=== PATIENT | female | born 1980 | race Caucasian/White ===

== ENCOUNTER 2016-07-18 09:54 | Emergency (ER) | payer OTHER ==
[2016-07-18 10:02] VITALS: BMI 26.3
[2016-07-18 10:03] VITALS: O2SAT 100
[2016-07-18] MEDS ORDERED: Sodium Chloride 0.9% 1,000 ML IV ONE (10:20)
--- NOTE | 2016-07-18 10:32 | C.PDOC ---
History Of Present Illness 35 year old patient, with a past medical history of gastritis, presents to the emergency department complaining of dizziness that began 1 week ago. Patient states the dizziness is intermittent and worse with standing in the morning. Patient also complains of a posterior headache that began yesterday. The headache is dull and aching. Patient took Tylenol with mild relief. This morning when she woke up, she was walking to the bathroom and felt dizzy with a room spinning sensation. Patient notes these symptoms are new. She reports nasal congestion and difficulty breathing through her nose at night. Patient denies fever, vision change, chest pain, shortness of breath, neck pain, numbness, weakness, or back pain. Time Seen by Provider: 07/18/16 10:06 Chief Complaint (Nursing): Dizziness/Lightheaded History Per: Patient History/Exam Limitations: no limitations Onset/Duration Of Symptoms: Days (7) Current Symptoms Are (Timing): Still Present Activity At Onset Of Symptoms: Walking Fall Associated With With Symptoms: No Severity: Mild Pain Scale Rating Of: 3 Recent travel outside of the [place]: No Past Medical History Reviewed: Historical Data, Nursing Documentation, Vital Signs Vital Signs: Last Vital Signs Temp 98.8 F 07/18/16 10:01 Pulse 72 07/18/16 10:01 Resp 17 07/18/16 10:01 BP 104/70 07/18/16 10:01 Pulse Ox 100 07/18/16 11:36 - Medical History PMH: Gastritis, Gastrointestinal Ulcer, Hiatal Hernia Surgical History: Cholecystectomy (05/31/14) Family History: States: Unknown Family Hx - Social History Hx Tobacco Use: No Hx Alcohol Use: No Hx Substance Use: No - Immunization History Hx Tetanus Toxoid Vaccination: No Hx Influenza Vaccination: No Hx Pneumococcal Vaccination: No Review Of Systems Except As Marked, All Systems Reviewed And Found Negative. Constitutional: Negative for: Fever Eyes: Negative for: Vision Change Cardiovascular: Negative for: Chest Pain Respiratory: Negative for: Shortness of Breath Musculoskeletal: Negative for: Neck Pain, Back Pain Neurological: Positive for: Headache, Dizziness. Negative for: Weakness, Numbness Physical Exam - Physical Exam Appears: Non-toxic, No Acute Distress Skin: Warm, Diaphoretic Head: Atraumatic, Normacephalic Eye(s): bilateral: Normal Inspection, PERRL, EOMI, Other ((-)nystagmus) Ear(s): Bilateral: Normal Nose: Normal Oral Mucosa: Moist Throat: Normal, No Erythema Neck: Normal ROM, No Midline Cervical Tenderness, No Paracervical Tenderness, Supple Chest: Symmetrical, No Tenderness Cardiovascular: Rhythm Regular Respiratory: Normal Breath Sounds, No Rales, No Rhonchi, No Wheezing Gastrointestinal/Abdominal: Soft, No Tenderness Back: Normal Inspection, No CVA Tenderness Extremity: Normal ROM Neurological/Psych: Oriented x3, Normal Speech, Normal Cognition, Normal Motor, Normal Sensation Gait: Steady ED Course And Treatment - Laboratory Results Result Diagrams: 07/18/16 10:38 07/18/16 10:38 Lab Interpretation: No Acute Changes ECG: Interpreted By Me, Viewed By Me (and Dr Lazaro) ECG Rhythm: Sinus Rhythm ECG Interpretation: No Acute Changes Interpretation Of ECG: NS at 80 bpm with nonspecific T wave abnormality, normal axis O2 Sat by Pulse Oximetry: 100 (RA) Pulse Ox Interpretation: Normal - CT Scan/US Head CT Other Rad Studies (CT/US): Read By Radiologist, Radiology Report Reviewed CT/US Interpretation: FINDINGS: HEMORRHAGE: No intracranial hemorrhage. BRAIN : No mass effect or edema. No atrophy or chronic microvascular ischemic changes. Pituitary region is unremarkable. No obvious cerebellopontine angle masses are noted. No extra-axial collections are identified. Retro-orbital regions are unremarkable. VENTRICLES: Unremarkable. No hydrocephalus. CALVARIUM: Unremarkable. PARANASAL SINUSES: Unremarkable as visualized. No significant inflammatory changes. MASTOID AIR CELLS: Unremarkable as visualized. No inflammatory changes. OTHER FINDINGS: None. IMPRESSION: No evidence of recent infarct or mass lesion. Unremarkable CT scan of the brain without contrast. Medical Decision Making Medical Decision Making: Impression: 35 year old with dizziness and headache Plan: Head CT, EKG, and labs are ordered. Orthostatic vital signs. Reglan and IV fluids are given. Re-assessment: Labs reviewed and unremarkable, no leukocytosis dehydration or other abnormality Head CT shows No evidence of recent infarct or mass lesion. Unremarkable CT scan of the brain without contrast. EKG obtained and shows no ischemic disease. Upon reevaluation patient resting comfortably in bed and reports headache and dizziness have resolved. Vital signs are stable. Patient has normal neurological exam. I explained all labs and CT findings with patient, and provide copy of reports. Advise patient to take Antivert and to follow up with her primary physician in few days for further evaluation. Patient verbalized understanding and feels comfortable going home. Disposition Counseled Patient/Family Regarding: Studies Performed, Diagnosis, Need For Followup, Rx Given - Disposition Referrals: Sol Hart MD [Non-Staff] - Hugh Evangelista MD [Staff Provider] - Disposition: HOME/ ROUTINE Disposition Time: 11:52 Condition: STABLE Additional Instructions: Cari laboratorios y TC rebeca normales Descanse y tome Antivert hasta 3 veces al da para mareos Realice un seguimiento con house mdico de cabecera y neurlogo para consultar Angela lquidos y descanse Volver a la renetta de emergencias para cualquier empeoramiento de los sntomas Prescriptions: Meclizine [Antivert] 25 mg PO Q6 #30 tab Instructions: Vertigo (ED) Print Language: TURKISH - POA Present On Arrival: None - Clinical Impression Clinical Impression: Vertigo - PA / 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 - Scribe Statement The provider has reviewed the documentation as recorded by the Scribe Pattie Maxwell All medical record entries made by the Scribe were at my direction and personally dictated by me. I have reviewed the chart and agree that the record accurately reflects my personal performance of the history, physical exam, medical decision making, and the department course for this patient. I have also personally directed, reviewed, and agree with the discharge instructions and disposition.
[2016-07-18] MEDS ORDERED: Sodium Chloride 0.9% 1,000 ML ONE (10:36)
[2016-07-18 10:46] LABS: RBC URINE < 1 /hpf (0-3); URINE BACTERIA RARE (<OCC); URINE BILIRUBIN NEGATIVE (NEGATIVE); URINE BLOOD 1+ (NEGATIVE); URINE COLOR Yellow (YELLOW); URINE GLUCOSE (UA) NORMAL (Normal); URINE KETONE NEGATIVE (NEGATIVE); URINE LEUKOCYTE ESTERASE NEG Leu/uL (Negative); URINE PROTEIN NEGATIVE (NEGATIVE); URINE UROBILINOGEN NORMAL mg/dL (0.2-1.0); WBC URINE 1 /hpf (0-5)
[2016-07-18 10:48] LABS: BASO % 0.8 % (0.0-2.0); EOS # 0.1 K/uL (0.0-0.7); EOS % 2.4 % (0.0-4.0); HEMATOCRIT 37.1 % (34.0-47.0); LYMPH # 1.6 K/uL (1.0-4.3); LYMPH % 28.4 % (20.0-40.0); MEAN CELL VOLUME 86.3 fL (81.0-99.0); MEAN CORPUSCULAR HGB CONC 33.7 g/dL (33.0-37.0); MEAN PLATELET VOLUME 9.2 fL (7.2-11.7); MONO # 0.3 K/uL (0.0-0.8); MONO % 5.8 % (0.0-10.0); RED CELL DISTRIBUTION WIDTH 14.1 % (11.5-14.5); WHITE BLOOD COUNT 5.6 K/uL (4.8-10.8)
[2016-07-18 10:51] LABS: CHLORIDE 99 mmol/L (98-107)
[2016-07-18 10:52] LABS: POTASSIUM 4.1 mmol/L (3.6-5.2); SODIUM 137 mmol/L (132-148)
[2016-07-18 10:55] LABS: ALB/GLOB RATIO 1.3 (1.0-2.1); ALKALINE PHOSPHATASE 50 U/L (38-126); ALT/SGPT 21 U/L (9-52); AST/SGOT 21 U/L (14-36); BILIRUBIN,TOTAL 0.4 mg/dL (0.2-1.3); BLOOD UREA NITROGEN 14 mg/dL (7-17); CARBON DIOXIDE 27 mmol/L (22-30); GFR AFRICAN-AMERICAN > 60; GLUCOSE,RANDOM 92 mg/dL (65-105); TOTAL PROTEIN 7.2 g/dL (6.3-8.3)
--- NOTE | 2016-07-18 11:31 | CT ---
PROCEDURE: CT HEAD WITHOUT CONTRAST. HISTORY: Headache and dizziness for 7 days COMPARISON: None available. TECHNIQUE: Axial computed tomography images were obtained through the head/brain without intravenous contrast. Radiation dose: Total exam DLP = 873 mGy-cm. FINDINGS: HEMORRHAGE: No intracranial hemorrhage. BRAIN: No mass effect or edema. No atrophy or chronic microvascular ischemic changes. Pituitary region is unremarkable. No obvious cerebellopontine angle masses are noted. No extra-axial collections are identified. Retro-orbital regions are unremarkable. VENTRICLES: Unremarkable. No hydrocephalus. CALVARIUM: Unremarkable. PARANASAL SINUSES: Unremarkable as visualized. No significant inflammatory changes. MASTOID AIR CELLS: Unremarkable as visualized. No inflammatory changes. OTHER FINDINGS: None. IMPRESSION: No evidence of recent infarct or mass lesion. Unremarkable CT scan of the brain without contrast.
[2016-07-18 12:33] VITALS: BP 105/65; PULSE 65; RESP 18; TEMP 98.5
--- NOTE | 2016-07-21 08:05 | CARD ---
APPROVED REPORT EKG Measurement Heart [id number] <Conclusion> Normal sinus rhythm Nonspecific T wave abnormality Prolonged QT Abnormal ECG
== END 2016-07-18 13:00 | disposition home or self-care (01) ==
LOC: C.ER 09:54
DX: R42 Dizziness and giddiness (principal)

== ENCOUNTER 2016-10-14 12:12 | Emergency (ER) | payer OTHER ==
[2016-10-14 12:12] VITALS: BMI 26.3
--- NOTE | 2016-10-14 13:55 | C.PDOC ---
History Of Present Illness 35-year-old female, (), presents to the emergency department with complaints of intermittent vaginal bleeding, described as "spotting" x2 weeks. Patient notes she was seen by [facility], where there was a test done and it was positive. Patient was seen by OB clinic, but they "did nothing" resulting in her coming to the ED for evaluation. Denies nausea/vomiting, vaginal discharge, or any other associated symptoms. No other complaints at this time. Time Seen by Provider: 10/14/16 13:02 Chief Complaint (Nursing): Female Genitourinary History Per: Patient History/Exam Limitations: no limitations Onset/Duration Of Symptoms: Days Past Medical History Reviewed: Historical Data, Nursing Documentation, Vital Signs Vital Signs: Last Vital Signs Temp 98.0 F 10/14/16 15:33 Pulse 71 10/14/16 15:33 Resp 20 10/14/16 15:33 BP 97/63 L 10/14/16 15:33 Pulse Ox 99 10/14/16 15:33 - Medical History PMH: Gastritis, Gastrointestinal Ulcer, Hiatal Hernia Surgical History: Cholecystectomy (05/31/14) Family History: States: No Known Family Hx - Social History Hx Tobacco Use: No Hx Alcohol Use: No Hx Substance Use: No - Immunization History Hx Tetanus Toxoid Vaccination: No Hx Influenza Vaccination: No Hx Pneumococcal Vaccination: No Review Of Systems Except As Marked, All Systems Reviewed And Found Negative. Constitutional: Negative for: Fever Cardiovascular: Negative for: Chest Pain Respiratory: Negative for: Shortness of Breath Gastrointestinal: Negative for: Nausea, Vomiting, Abdominal Pain Genitourinary: Positive for: Vaginal Bleeding. Negative for: Dysuria, Frequency , Vaginal Discharge Physical Exam - Physical Exam Appears: Well, Non-toxic, No Acute Distress Skin: Normal Color, Warm, Dry, No Rash Nose: Normal Oral Mucosa: Moist Lips: Normal Appearing Neck: Normal ROM Cardiovascular: Rhythm Regular, No Murmur Respiratory: Normal Breath Sounds, No Accessory Muscle Use Gastrointestinal/Abdominal: Soft, No Tenderness Back: Normal Inspection Extremity: Normal ROM ED Course And Treatment - Laboratory Results Result Diagrams: 10/14/16 14:10 10/14/16 14:10 O2 Sat by Pulse Oximetry: 100 - CT Scan/US us Other Rad Studies (CT/US): Radiology Report Reviewed CT/US Interpretation: Findings: The uterus measures approximately 9.7 x 5.5 x 6.9 cm. Cervix length measures approximately 3.4 cm. 6 mm yolk sac. The gestational sac measures 1.2 cm and is compatible with a gestational age of 5 weeks 2 days. pole is not detected. The right ovary measures 3.8 x 2.0 x 2.9 cm with probable corpus luteal cyst measuring approximately 2.6 x 2.0 x 2.0 cm. The left ovary measures 2.3 x 1.7 x 2.5 cm. Blood flow was demonstrated to both ovaries. Impression: Intrauterine gestational sac compatible with gestational age 5 weeks 2 days. 6 mm yolk sac. pole is not detected. Medical Decision Making Medical Decision Making: Results including US discussed with pt Contrary to radiologist report OB consult is NOT indicated at this time Pt stable for discharge and op follow up Disposition Counseled Patient/Family Regarding: Need For Followup - Disposition Disposition: HOME/ ROUTINE Disposition Time: 15:50 Condition: GOOD Additional Instructions: Follow up with you ob clinic in 2-3 days to have repeat blood test Return to the ed for any new or worsening symptoms Instructions: Threatened Miscarriage (ED) Print Language: SAMOAN - Clinical Impression Clinical Impression: First trimester bleeding - Scribe Statement The provider has reviewed the documentation as recorded by the Bandar Melendez All medical record entries made by the Bandar were at my direction and personally dictated by me. I have reviewed the chart and agree that the record accurately reflects my personal performance of the history, physical exam, medical decision making, and the department course for this patient. I have also personally directed, reviewed, and agree with the discharge instructions and disposition.
[2016-10-14 14:13] LABS: BASO # 0.1 K/uL (0.0-0.2); BASO % 0.7 % (0.0-2.0); EOS # 0.2 K/uL (0.0-0.7); HEMATOCRIT 37.8 % (34.0-47.0); LYMPH # 1.8 K/uL (1.0-4.3); LYMPH % 22.6 % (20.0-40.0); MEAN CORPUSCULAR HEMOGLOBIN 28.9 pg (27.0-31.0); MEAN CORPUSCULAR HGB CONC 33.2 g/dL (33.0-37.0); MEAN PLATELET VOLUME 8.9 fL (7.2-11.7); MONO # 0.4 K/uL (0.0-0.8); MONO % 5.3 % (0.0-10.0); NRBC % 0.1 % (0.0-2.0); RED CELL DISTRIBUTION WIDTH 14.4 % (11.5-14.5); WHITE BLOOD COUNT 7.8 K/uL (4.8-10.8)
[2016-10-14 14:22] LABS: CHLORIDE 103 mmol/L (98-107); SODIUM 137 mmol/L (132-148)
[2016-10-14 14:23] LABS: POTASSIUM 3.6 mmol/L (3.6-5.2)
[2016-10-14 14:24] LABS: GFR AFRICAN-AMERICAN > 60
[2016-10-14 14:25] LABS: ALB/GLOB RATIO 1.4 (1.0-2.1); ALKALINE PHOSPHATASE 61 U/L (38-126); ALT/SGPT 25 U/L (9-52); AST/SGOT 23 U/L (14-36); BILIRUBIN,TOTAL 0.3 mg/dL (0.2-1.3); BLOOD UREA NITROGEN 12 mg/dL (7-17); CARBON DIOXIDE 24 mmol/L (22-30); GLUCOSE,RANDOM 81 mg/dL (65-105); TOTAL PROTEIN 7.2 g/dL (6.3-8.3)
[2016-10-14 14:26] LABS: CALCIUM 8.7 mg/dl (8.6-10.4)
[2016-10-14 14:39] LABS: URINE BILIRUBIN NEGATIVE (NEGATIVE); URINE BLOOD 1+ (NEGATIVE); URINE COLOR Straw (YELLOW); URINE GLUCOSE (UA) NORMAL (Normal); URINE KETONE NEGATIVE (NEGATIVE); URINE LEUKOCYTE ESTERASE NEG Leu/uL (Negative); URINE PROTEIN NEGATIVE (NEGATIVE); URINE UROBILINOGEN NORMAL mg/dL (0.2-1.0); WBC URINE 1 /hpf (0-5)
[2016-10-14 14:43] LABS: RBC URINE 2 /hpf (0-3); URINE BACTERIA RARE (<OCC)
--- NOTE | 2016-10-14 15:05 | US ---
Indication: 2 miscarriages, , bleeding Comparison: None available. Technique: Real-time transabdominal pelvic ultrasound was performed. In addition a transvaginal pelvic ultrasound was necessary to better depict pelvic anatomy. Findings: The uterus measures approximately 9.7 x 5.5 x 6.9 cm. Cervix length measures approximately 3.4 cm. 6 mm yolk sac. The gestational sac measures 1.2 cm and is compatible with a gestational age of 5 weeks 2 days. pole is not detected. The right ovary measures 3.8 x 2.0 x 2.9 cm with probable corpus luteal cyst measuring approximately 2.6 x 2.0 x 2.0 cm. The left ovary measures 2.3 x 1.7 x 2.5 cm. Blood flow was demonstrated to both ovaries. Impression: Intrauterine gestational sac compatible with gestational age 5 weeks 2 days. 6 mm yolk sac. pole is not detected. Correlate clinically including SONOGRAPHER consultation and close interval follow-up as indicated. Probable right corpus luteal cyst measuring approximately 2.6 x 2.0 x 2.0 cm.
[2016-10-14 15:34] VITALS: BP 97/63; PULSE 71; RESP 20; TEMP 98
[2016-10-14 15:53] VITALS: O2SAT 100
== END 2016-10-14 16:09 | disposition home or self-care (01) ==
LOC: C.ER 12:12
DX: O20.9 Hemorrhage in early pregnancy, unspecified (principal); Z3A.01 Less than 8 weeks gestation of pregnancy

== ENCOUNTER 2016-10-15 13:11 | Emergency (ER) | payer OTHER ==
[2016-10-15 13:11] VITALS: BMI 26.3
[2016-10-15 13:23] VITALS: O2SAT 97
--- NOTE | 2016-10-15 13:56 | C.PDOC ---
History Of Present Illness 35 y/o female presents to ED with complaints of vaginal bleeding. Patient was seen at ED yesterday for vaginal spotting and had blood work and an ultrasound where patient states could have been the reason bleeding has increased today by passing small blood clots. Patient also complaints of cramping and lower abdominal pain. Patient denies fever, vomit, urinary symptoms or any other complaints at this time. Reports (+) care, (+) prior US - done here yesterday. OB : [place] [facility] [phone] Time Seen by Provider: 10/15/16 13:34 Chief Complaint (Nursing): Female Genitourinary History Per: Patient History/Exam Limitations: no limitations Onset/Duration Of Symptoms: Days Current Symptoms Are (Timing): Still Present Associated Symptoms: denies: Vomiting, Urinary Symptoms Past Medical History Reviewed: Historical Data, Nursing Documentation, Vital Signs Vital Signs: Last Vital Signs Temp 98.9 F 10/15/16 13:22 Pulse 84 10/15/16 13:22 Resp 16 10/15/16 13:22 BP 112/79 10/15/16 13:22 Pulse Ox 97 10/15/16 16:39 - Medical History PMH: Gastritis, Gastrointestinal Ulcer, Hiatal Hernia Surgical History: Cholecystectomy (05/31/14) Family History: States: No Known Family Hx - Social History Hx Tobacco Use: No Hx Alcohol Use: No Hx Substance Use: No - Immunization History Hx Tetanus Toxoid Vaccination: No Hx Influenza Vaccination: No Hx Pneumococcal Vaccination: No Review Of Systems Except As Marked, All Systems Reviewed And Found Negative. Constitutional: Negative for: Fever, Chills Gastrointestinal: Positive for: Abdominal Pain. Negative for: Vomiting Genitourinary: Positive for: Vaginal Bleeding Skin: Negative for: Rash Physical Exam - Physical Exam Appears: Non-toxic, No Acute Distress Skin: Normal Color, Warm Head: Atraumatic, Normacephalic Oral Mucosa: Moist Cardiovascular: Rhythm Regular, No Murmur Respiratory: Normal Breath Sounds, No Rales, No Rhonchi, No Wheezing Gastrointestinal/Abdominal: Soft, Tenderness (Mild Suprapubic Tenderness), No Organomegaly, No Distention, No Guarding, No Rebound Back: Normal Inspection, No CVA Tenderness, No Vertebral Tenderness Pelvic: Vaginal Bleeding (mild bleeding noted from a closed OS, diazo technician was present during the entire exam) Extremity: Normal ROM, Capillary Refill (<2 seconds) Neurological/Psych: Oriented x3, Normal Speech Gait: Steady ED Course And Treatment - Laboratory Results Result Diagrams: 10/15/16 14:12 Interpretation Of Abnormal: beta quant 1,134 Urine POC: Positive O2 Sat by Pulse Oximetry: 97 (RA) Pulse Ox Interpretation: Normal - CT Scan/US US TV Other Rad Studies (CT/US): Read By Radiologist CT/US Interpretation: Findings: The uterus measures approximately 10.5 x 5.9 x 6.5 cm. Anteverted. Cervix length measures approximately 2.7 cm. Gestational sac measuring approximately 1.2 cm compatible with gestational age 5 weeks 3 days. The gestational sac is irregular in appearance and resides within the lower uterine segment. 2 mm yolk sac also appears irregular. No evidence of pole. The right ovary measures approximately 3.8 x 2.1 x 2.5 cm and contains probable corpus luteal cyst measuring approximately 2.3 x 1.8 x 1.9 cm. The left ovary measures approximately 2.8 x 1.1 x 2.7 cm. Blood flow was demonstrated to both ovaries. Impression: Irregular shape of an intrauterine gestational sac which measures approximately 1.2 cm compatible with gestational age 5 weeks 3 days. The gestational sac resides within the lower uterine segment , new as compared to recent prior study. 2 mm yolk sac also appears irregular in shape. pole is not identified. Correlate clinically. 2.3 cm probable right corpus luteal cyst. Medical Decision Making Medical Decision Makin yo F returns to the ER for increased in vaginal bleeding and lower abdominal crampy pain which started this AM. Reports that she was seen here yesterday for vaginal spotting, had labs and US. Her beta quant from yesterday was 1,900, her US showed +yolk sac with no pole. Of note, patient's type and screen yesterday, showed pt is O+. Plan: - CBC - Beta quant - TV US Labs results reviewed, beta quant has decreased from yesterday and her TV US shows (+) sac with no pole. Results of the diagnostic studies today is consistent with a likely miscarriage. Diagnostic results d/w the patient and her in great detail. Notified of likely diagnosis. Patient and her at this time would like to watch and wait and does not feel comfortable with any further treatment plans. Call placed to her OB. Case d/w Dr. Zhao, from [facility], who states that as long as the patient is not having heavy vaginal bleeding, can f/u as an outpatient in the next 2-3 days without fail. Arrangements made for outpatient f/u for the patient with the clinic on Tuesday 9AM 10/18/16 for further evaluation and follow up. Return to the ER at any time for any new or worsening symptoms. Disposition - Disposition Disposition: HOME/ ROUTINE Disposition Time: 16:00 Condition: STABLE Additional Instructions: Follow up with the clinic on Tuesday10/18/16 at 9am without fail for re- evaluation. Return to the ER at any time for any new or worsening symptoms. 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 - Scribe Statement The provider has reviewed the documentation as recorded by the Kaityibdonna Valdivia All medical record entries made by the Bandar were at my direction and personally dictated by me. I have reviewed the chart and agree that the record accurately reflects my personal performance of the history, physical exam, medical decision making, and the department course for this patient. I have also personally directed, reviewed, and agree with the discharge instructions and disposition.
[2016-10-15 14:20] LABS: BASO # 0.1 K/uL (0.0-0.2); EOS # 0.1 K/uL (0.0-0.7); EOS % 1.5 % (0.0-4.0); HEMATOCRIT 36.7 % (34.0-47.0); LYMPH # 1.9 K/uL (1.0-4.3); LYMPH % 22.6 % (20.0-40.0); MEAN CELL VOLUME 86.9 fL (81.0-99.0); MEAN CORPUSCULAR HEMOGLOBIN 28.6 pg (27.0-31.0); MEAN CORPUSCULAR HGB CONC 32.9 g/dL (33.0-37.0); MEAN PLATELET VOLUME 8.9 fL (7.2-11.7); MONO # 0.4 K/uL (0.0-0.8); MONO % 4.7 % (0.0-10.0); RED CELL DISTRIBUTION WIDTH 14.3 % (11.5-14.5); WHITE BLOOD COUNT 8.6 K/uL (4.8-10.8)
--- NOTE | 2016-10-15 14:56 | US ---
Indication: Vaginal bleeding Comparison: 1st trimester ultrasound performed 10/14/16 Technique: Ob transvaginal ultrasound Findings: The uterus measures approximately 10.5 x 5.9 x 6.5 cm. Anteverted. Cervix length measures approximately 2.7 cm. Gestational sac measuring approximately 1.2 cm compatible with gestational age 5 weeks 3 days. The gestational sac is irregular in appearance and resides within the lower uterine segment. 2 mm yolk sac also appears irregular. No evidence of pole. The right ovary measures approximately 3.8 x 2.1 x 2.5 cm and contains probable corpus luteal cyst measuring approximately 2.3 x 1.8 x 1.9 cm. The left ovary measures approximately 2.8 x 1.1 x 2.7 cm. Blood flow was demonstrated to both ovaries. Impression: Irregular shape of an intrauterine gestational sac which measures approximately 1.2 cm compatible with gestational age 5 weeks 3 days. The gestational sac resides within the lower uterine segment, new as compared to recent prior study. 2 mm yolk sac also appears irregular in shape. pole is not identified. Correlate clinically. 2.3 cm probable right corpus luteal cyst.
[2016-10-15 16:44] VITALS: BP 98/64; PULSE 90; RESP 18; TEMP 98.8
== END 2016-10-15 16:45 | disposition home or self-care (01) ==
LOC: C.ER 13:11
DX: O03.4 Incomplete spontaneous abortion without complication (principal)

== ENCOUNTER 2017-03-30 15:52 | Emergency (ER) | payer OTHER ==
[2017-03-30 15:52] VITALS: BMI 26.3
[2017-03-30 16:30] VITALS: TEMP 97.8
--- NOTE | 2017-03-30 17:10 | C.PDOC ---
History Of Present Illness 36 y/o female c/o flu like symptoms approx 10 days ago, now with persistent dry cough for the last week. pt also c/o sternal chest pain that comes and goes with no associated diaphoresis or sob, and with coughing as well. no recent fever, no rhinorrhea. denies leg pain or leg swelling, not on ocp, no recent surgery or prolonged immobilization. Time Seen by Provider: 03/30/17 16:30 Chief Complaint (Nursing): Fever History Per: Patient History/Exam Limitations: no limitations Onset/Duration Of Symptoms: Days Current Symptoms Are (Timing): Still Present Sick Contacts (Context): None Associated Symptoms: Cough Ear Symptoms: Bilateral: None Recent travel outside of the [place]: No Additional History Per: Patient Past Medical History Reviewed: Historical Data, Nursing Documentation, Vital Signs Vital Signs: Last Vital Signs Temp 97.8 F 03/30/17 16:30 Pulse 78 03/30/17 18:57 Resp 16 03/30/17 18:57 BP 119/85 03/30/17 18:57 Pulse Ox 99 04/02/17 10:52 - Medical History PMH: Gastritis, Gastrointestinal Ulcer, Hiatal Hernia Surgical History: Cholecystectomy (05/31/14) Family History: States: Unknown Family Hx - Social History Hx Tobacco Use: No Hx Alcohol Use: No Hx Substance Use: No - Immunization History Hx Tetanus Toxoid Vaccination: No Hx Influenza Vaccination: No Hx Pneumococcal Vaccination: No Review Of Systems Constitutional: Negative for: Fever, Chills Cardiovascular: Positive for: Chest Pain. Negative for: Palpitations Respiratory: Positive for: Cough. Negative for: Shortness of Breath Gastrointestinal: Negative for: Nausea, Vomiting, Abdominal Pain Musculoskeletal: Negative for: Leg Pain Skin: Negative for: Rash Neurological: Negative for: Weakness, Numbness Physical Exam - Physical Exam Appears: Non-toxic, No Acute Distress Skin: Normal Color, Warm, Dry Head: Atraumatic, Normacephalic Eye(s): bilateral: Normal Inspection Oral Mucosa: Moist Throat: No Erythema Neck: Supple Lymphatic: No Adenopathy Chest: Symmetrical, No Deformity, Tenderness (reproducible tenderness along bilateral costochondral borders) Cardiovascular: Rhythm Regular, No Murmur Respiratory: No Decreased Breath Sounds, No Rales, No Rhonchi, No Wheezing Gastrointestinal/Abdominal: Soft, No Tenderness Back: No Vertebral Tenderness Extremity: Normal ROM, No Pedal Edema, No Calf Tenderness, No Swelling Neurological/Psych: Oriented x3, Normal Speech, Normal Cognition, Normal Motor, Normal Sensation ED Course And Treatment - Laboratory Results Urine POC: Negative Interpretation Of ECG: non specific t wave abnormality Rate From EC O2 Sat by Pulse Oximetry: 99 Pulse Ox Interpretation: Normal - Radiology CXR: Viewed By Me, Read By Radiologist CXR Interpretation: Yes: Other (Findings are most compatible with reactive small airway disease/ viral bronchitis/ atypical pneumonitis. No lobar pneumonia.) Medical Decision Making Medical Decision Making: pt feeling better after toradol, cxr neg for infiltrate, ekg with non specigfic changes. pt advised to f/u with pmd. Disposition Counseled Patient/Family Regarding: Studies Performed, Diagnosis, Need For Followup, Rx Given - Disposition Referrals: [facility] [Outside] Disposition: HOME/ ROUTINE Disposition Time: 18:39 Condition: STABLE Additional Instructions: Follow up with your doctor in a few days. Take ibuprofen for pain. Return to ER for any worse symptoms, worse pain, shortness of breath or any other concerns. Prescriptions: Ibuprofen [Motrin] 600 mg PO TID #30 tab Instructions: Costochondritis (ED) Forms: Gen Discharge Inst [employer], [employer] ([facility]) Print Language: SAMMARINESE - Clinical Impression Clinical Impression: Costochondral chest pain, Upper respiratory infection
--- NOTE | 2017-03-30 18:05 | RAD ---
HISTORY: COMPARISON: 05/31/2015 TECHNIQUE: Chest PA and lateral FINDINGS: LINES AND TUBES: None. LUNG AND PLEURA: There is mild pulmonary hyperinflation and peribronchial cuffing with streaky opacities in both lungs. No focal consolidation. HEART AND MEDIASTINUM: The heart is not enlarged. The hilar and mediastinal contours are within normal limits. SKELETAL STRUCTURES: The bony structures are within normal limits for the patient's age. VISUALIZED UPPER ABDOMEN: Normal. OTHER FINDINGS: None. IMPRESSION: Findings are most compatible with reactive small airway disease/ viral bronchitis/ atypical pneumonitis. No lobar pneumonia.
[2017-03-30 18:58] VITALS: BP 119/85; PULSE 78; RESP 16
--- NOTE | 2017-03-31 21:47 | CARD ---
APPROVED REPORT EKG Measurement Heart [id number] <Conclusion> Normal sinus rhythm Nonspecific T wave abnormality Abnormal ECG
[2017-04-02 10:51] VITALS: O2SAT 99
== END 2017-03-30 18:57 | disposition home or self-care (01) ==
LOC: C.ER 15:52
DX: J06.9 Acute upper respiratory infection, unspecified (principal); R07.89 Other chest pain
CPT/HCPCS: 71020; 93005; 96372; 99283; J1885

== ENCOUNTER 2017-06-15 07:09 | Emergency (ER) | payer OTHER ==
[2017-06-15 07:10] VITALS: BMI 26.3
[2017-06-15 07:18] VITALS: BP 106/72; PULSE 94; RESP 24; TEMP 98.4; O2SAT 98
--- NOTE | 2017-06-15 07:35 | C.PDOC ---
History Of Present Illness 36 y/o female presents to ED with complaints of constant right sided back pain for 1 week. Patient states she has taken Motrin with minimal relief but pain comes back. Patient denies direct injury to back or fall. However she does heavy lifting at work. She denies vomiting, dysuria, hematuria or any other complaints at this time. Time Seen by Provider: 06/15/17 07:24 Chief Complaint (Nursing): Back Pain History Per: Patient History/Exam Limitations: no limitations Onset/Duration Of Symptoms: Days Current Symptoms Are (Timing): Still Present Past Medical History Reviewed: Historical Data, Nursing Documentation, Vital Signs Vital Signs: Last Vital Signs Temp 98.4 F 06/15/17 07:13 Pulse 94 H 06/15/17 07:13 Resp 24 06/15/17 07:13 BP 106/72 06/15/17 07:13 Pulse Ox 98 06/15/17 09:25 - Medical History PMH: Gastritis, Gastrointestinal Ulcer, Hiatal Hernia Surgical History: Cholecystectomy (05/31/14) Family History: States: No Known Family Hx - Social History Hx Tobacco Use: No Hx Alcohol Use: No Hx Substance Use: No - Immunization History Hx Tetanus Toxoid Vaccination: No Hx Influenza Vaccination: No Hx Pneumococcal Vaccination: No Review Of Systems Constitutional: Negative for: Fever, Chills Gastrointestinal: Negative for: Nausea, Vomiting Genitourinary: Negative for: Dysuria, Hematuria Musculoskeletal: Positive for: Back Pain Skin: Negative for: Rash Physical Exam - Physical Exam Appears: Non-toxic, No Acute Distress Skin: Warm, Dry, No Rash Head: Atraumatic, Normacephalic Eye(s): bilateral: Normal Inspection, EOMI Oral Mucosa: Moist Neck: Normal ROM, Supple Cardiovascular: Rhythm Regular, No Murmur Respiratory: Normal Breath Sounds, No Rales, No Rhonchi, No Wheezing Gastrointestinal/Abdominal: Soft, No Tenderness, No Guarding, No Rebound Back: Normal Inspection (no erythema, rash or ecchymosis), No Vertebral Tenderness, No Decreased ROM, Muscle Spasm, Paraspinal Tenderness (tenderness to right side mid to lower back ) Extremity: Bilateral: Atraumatic, Normal Color And Temperature, Normal ROM Neurological/Psych: Oriented x3, Normal Speech ED Course And Treatment O2 Sat by Pulse Oximetry: 98 (RA) Pulse Ox Interpretation: Normal Medical Decision Making Medical Decision Making: Impression; Muscle spasm Plan: Lidoderm patch, Toradol and Valium administered Re-Eval: Patient resting on stretcher in no distress. She reports pain is improving. She is ambulatory without signs of discomfort. Patient stable for discharge. Disposition Counseled Patient/Family Regarding: Need For Followup, Rx Given - Disposition Disposition: HOME/ ROUTINE Disposition Time: 09:23 Condition: GOOD Additional Instructions: Please apply heat to area of pain Take Ibuprofen as needed for pain Take Flexeril as needed for muscle pain, may cause drowsiness Follow up with your primary medical doctor or clinic in 2-5 days for further evaluation. Return to the emergency department at any time if symptoms persist or worsen. Por favor aplica calor a la chanel del dolor [place] ibuprofeno segn sea necesario para el dolor [place] Flexeril segn sea necesario para el dolor muscular, puede causar somnolencia Stephan un seguimiento con house mdico primario o clnica en 2-5 chirinos para elana evaluacin adicional. Regrese al departamento de emergencia en cualquier momento si los sntomas persisten o empeoran. Prescriptions: Cyclobenzaprine [Cyclobenzaprine HCl] 10 mg PO TID #21 tab Ibuprofen [Motrin] 600 mg PO Q8 #30 tab Instructions: Back Pain (GEN), Back Exercises (ED) Forms: [employer] (Sinhala) Print Language: ROMANSH - POA Present On Arrival: None - Clinical Impression Clinical Impression: Thoracic back pain, Thoracic back sprain - PA / [employer] / Resident Statement MD/DO has reviewed & agrees with the documentation as recorded. - Scribe Statement The provider has reviewed the documentation as recorded by the Kaityibdonna Valdivia All medical record entries made by the Bandar were at my direction and personally dictated by me. I have reviewed the chart and agree that the record accurately reflects my personal performance of the history, physical exam, medical decision making, and the department course for this patient. I have also personally directed, reviewed, and agree with the discharge instructions and disposition.
[2017-06-15] MEDS ORDERED: Lidocaine 5% Patch TD STA (07:43)
[2017-06-15] MEDS ORDERED: Lidocaine 5% Patch TD ONE (07:59)
== END 2017-06-15 09:28 | disposition home or self-care (01) ==
LOC: C.ER 07:09
DX: S23.3XXA Sprain of ligaments of thoracic spine, initial encounter (principal); X58.XXXA Exposure to other specified factors, initial encounter; M54.6 Pain in thoracic spine
CPT/HCPCS: 96372; 99284; J1885

== ENCOUNTER 2017-08-10 13:32 | Emergency (ER) | payer OTHER ==
[2017-08-10 13:33] VITALS: BMI 26.3
[2017-08-10 13:41] VITALS: O2SAT 100
[2017-08-10 14:06] LABS: HCG,QUALITATIVE URINE NEGATIVE (NEGATIVE)
--- NOTE | 2017-08-10 14:09 | C.PDOC ---
History Of Present Illness 36 y/o female with a PMHx of gastritis and gastric ulcers, who presents with complaints of intermittent left upper quadrant pain for the last week. Patient states the pain comes and goes spontaneously, it is not associated with movement or food. No nausea, vomiting, dysuria, frequency, vaginal bleeding or discharge. Patient did not take anything for the pain at home. Time Seen by Provider: 08/10/17 13:58 Chief Complaint (Nursing): Abdominal Pain History Per: Patient History/Exam Limitations: no limitations Onset/Duration Of Symptoms: Intermittent Episodes Current Symptoms Are (Timing): Still Present Location Of Pain/Discomfort: LUQ Radiation Of Pain To:: None Past Medical History Reviewed: Historical Data, Nursing Documentation, Vital Signs Vital Signs: Last Vital Signs Temp 97.8 F 08/10/17 13:38 Pulse 84 08/10/17 13:38 Resp 16 08/10/17 13:38 BP 109/64 08/10/17 13:38 Pulse Ox 100 08/10/17 14:13 - Medical History PMH: Gastritis, Gastrointestinal Ulcer, Hiatal Hernia Surgical History: Cholecystectomy (05/31/14) Family History: States: Unknown Family Hx - Social History Hx Tobacco Use: No Hx Alcohol Use: No Hx Substance Use: No - Immunization History Hx Tetanus Toxoid Vaccination: No Hx Influenza Vaccination: No Hx Pneumococcal Vaccination: No Review Of Systems Except As Marked, All Systems Reviewed And Found Negative. Constitutional: Negative for: Fever Gastrointestinal: Positive for: Abdominal Pain. Negative for: Nausea, Vomiting Genitourinary: Negative for: Dysuria, Frequency, Hematuria, Vaginal Discharge, Vaginal Bleeding Musculoskeletal: Negative for: Back Pain Physical Exam - Physical Exam Appears: Non-toxic, No Acute Distress Skin: Normal Color, Warm, Dry Head: Atraumatic, Normacephalic Eye(s): bilateral: Normal Inspection, PERRL, EOMI Oral Mucosa: Moist Neck: Normal ROM Chest: Symmetrical Cardiovascular: Rhythm Regular, No Murmur Respiratory: Normal Breath Sounds, No Rales, No Rhonchi, No Wheezing Gastrointestinal/Abdominal: Soft, Tenderness (to the left upper quadrant and toward the epigastric area), No Guarding, No Rebound Extremity: Bilateral: Atraumatic, Normal Color And Temperature, Normal ROM Neurological/Psych: Oriented x3, Normal Speech Gait: Steady ED Course And Treatment - Laboratory Results Result Diagrams: 08/10/17 14:17 08/10/17 14:17 Lab Interpretation: No Acute Changes O2 Sat by Pulse Oximetry: 100 (RA) Pulse Ox Interpretation: Normal Progress Note: Ordered blood work and urine. Patient given 40 mg Protonix IV Reevaluation Time: 14:47 Reassessment Condition: Improved Disposition Counseled Patient/Family Regarding: Studies Performed, Diagnosis, Need For Followup, Rx Given - Disposition Referrals: [facility] [Outside] Disposition: HOME/ ROUTINE Disposition Time: 14:53 Condition: STABLE Additional Instructions: Keep the appointment that you have with the specialist in 2 weeks. Prescriptions: Omeprazole 40 mg PO DAILY #14 capsule. Instructions: Gastritis, Ulcer and Gastritis Diet Forms: [employer] (Serbian) Print Language: GRENADIAN - Clinical Impression Clinical Impression: Abdominal pain - Scribe Statement The provider has reviewed the documentation as recorded by the Scribe (Lexy Cheung) Provider Attestation: All medical record entries made by the Scribe were at my direction and personally dictated by me. I have reviewed the chart and agree that the record accurately reflects my personal performance of the history, physical exam, medical decision making, and the department course for this patient. I have also personally directed, reviewed, and agree with the discharge instructions and disposition.
[2017-08-10 14:14] LABS: SQUAMOUS EPITHIAL 1 /hpf (0-5); URINE BILIRUBIN NEGATIVE (NEGATIVE); URINE BLOOD 1+ (NEGATIVE); URINE CLARITY Clear (Clear); URINE COLOR Yellow (YELLOW); URINE GLUCOSE (UA) NORMAL (Normal); URINE LEUKOCYTE ESTERASE NEG Leu/uL (Negative); URINE PROTEIN NEGATIVE (NEGATIVE); URINE UROBILINOGEN NORMAL mg/dL (0.2-1.0)
[2017-08-10 14:23] LABS: BASO % 0.3 % (0.0-2.0); EOS # 0.1 K/uL (0.0-0.7); EOS % 1.3 % (0.0-4.0); HEMOGLOBIN 11.9 g/dL (11.0-16.0); LYMPH # 1.9 K/uL (1.0-4.3); LYMPH % 26.3 % (20.0-40.0); MEAN CELL VOLUME 84.8 fL (81.0-99.0); MEAN CORPUSCULAR HEMOGLOBIN 29.3 pg (27.0-31.0); MEAN CORPUSCULAR HGB CONC 34.6 g/dL (33.0-37.0); MEAN PLATELET VOLUME 9.5 fL (7.2-11.7); MONO # 0.4 K/uL (0.0-0.8); MONO % 5.1 % (0.0-10.0); NEUT # 4.9 K/uL (1.8-7.0); NRBC % 0.1 % (0.0-2.0); RBC 4.05 Mil/uL (3.80-5.20); RED CELL DISTRIBUTION WIDTH 14.1 % (11.5-14.5); WHITE BLOOD COUNT 7.4 K/uL (4.8-10.8)
[2017-08-10 14:39] LABS: ALB/GLOB RATIO 1.1 (1.0-2.1); ALBUMIN 3.9 g/dL (3.5-5.0); CALCIUM 8.3 mg/dl (8.6-10.4); GFR AFRICAN-AMERICAN > 60; GFR NON-AFRICAN AMERICAN > 60; LIPASE 54 U/L (23-300)
[2017-08-10 14:41] LABS: ALT/SGPT 25 U/L (9-52); AST/SGOT 32 U/L (14-36); BLOOD UREA NITROGEN 10 mg/dL (7-17)
[2017-08-10 15:17] VITALS: BP 114/74; PULSE 79; RESP 20; TEMP 98.3
== END 2017-08-10 15:10 | disposition home or self-care (01) ==
LOC: C.ER 13:32
DX: R10.9 Unspecified abdominal pain (principal)
CPT/HCPCS: 80053; 81001; 83690; 84703; 85025; 96374; 99283; C9113

== ENCOUNTER 2017-10-13 09:34 | Emergency (ER) | payer OTHER, SELFPAY ==
[2017-10-13 09:38] VITALS: RESP 18; TEMP 99.4; BMI 28.8
[2017-10-13] MEDS ORDERED: LIDOCAINE IV ONE (10:29)
[2017-10-13] MEDS ORDERED: Sodium Chloride 0.9% 1,000 ML IV ONE (10:29)
[2017-10-13] MEDS ORDERED: SODIUM CHLORIDE 0.9% IV ONE (10:29)
[2017-10-13] MEDS ORDERED: Sodium Chloride 0.9% 1,000 ML ONE (10:52)
[2017-10-13 10:58] LABS: BASO % 0.8 % (0.0-2.0); EOS # 0.1 K/uL (0.0-0.7); EOS % 1.7 % (0.0-4.0); HEMOGLOBIN 12.3 g/dL (11.0-16.0); LYMPH # 1.4 K/uL (1.0-4.3); LYMPH % 23.5 % (20.0-40.0); MEAN CORPUSCULAR HEMOGLOBIN 28.8 pg (27.0-31.0); MEAN CORPUSCULAR HGB CONC 34.3 g/dL (33.0-37.0); MONO # 0.3 K/uL (0.0-0.8); RBC 4.28 Mil/uL (3.80-5.20); RED CELL DISTRIBUTION WIDTH 14.1 % (11.5-14.5); WHITE BLOOD COUNT 5.8 K/uL (4.8-10.8)
[2017-10-13 11:00] LABS: SQUAMOUS EPITHIAL 1 /hpf (0-5); URINE BILIRUBIN NEGATIVE (NEGATIVE); URINE BLOOD NEGATIVE (NEGATIVE); URINE CLARITY Clear (Clear); URINE COLOR Yellow (YELLOW); URINE GLUCOSE (UA) NORMAL (Normal); URINE LEUKOCYTE ESTERASE NEG Leu/uL (Negative); URINE PROTEIN NEGATIVE (NEGATIVE); URINE UROBILINOGEN NORMAL mg/dL (0.2-1.0)
--- NOTE | 2017-10-13 11:01 | C.PDOC ---
History Of Present Illness 36-year-old female, presents to the emergency department with complaints of abdominal that started several months ago. Pain is intermittent in nature, and non-radiating. Pain is mostly on left side of abdomen. She denies any associated nausea/vomiting, fever, chills, chest pain or any other associated symptoms. No other complaints at this time. Time Seen by Provider: 10/13/17 09:44 Chief Complaint (Nursing): Abdominal Pain History Per: Patient History/Exam Limitations: no limitations Current Symptoms Are (Timing): Still Present Past Medical History Reviewed: Historical Data, Nursing Documentation, Vital Signs Vital Signs: Last Vital Signs Temp 99.4 F 10/13/17 09:38 Pulse 71 10/13/17 12:31 Resp 18 10/13/17 12:31 BP 96/62 L 10/13/17 12:31 Pulse Ox 100 10/13/17 13:52 - Medical History PMH: Gastritis, Gastrointestinal Ulcer, Hiatal Hernia Surgical History: Cholecystectomy (05/31/14), Hernia Repair (umbilical) Family History: States: No Known Family Hx - Social History Hx Tobacco Use: No Hx Alcohol Use: No Hx Substance Use: No - Immunization History Hx Tetanus Toxoid Vaccination: No Hx Influenza Vaccination: No Hx Pneumococcal Vaccination: No Review Of Systems Except As Marked, All Systems Reviewed And Found Negative. Constitutional: Negative for: Fever, Chills Cardiovascular: Negative for: Chest Pain Respiratory: Negative for: Cough, Shortness of Breath Gastrointestinal: Positive for: Abdominal Pain, Constipation. Negative for: Nausea, Vomiting Musculoskeletal: Negative for: Back Pain Skin: Negative for: Rash Neurological: Negative for: Weakness Physical Exam - Physical Exam Appears: Non-toxic, No Acute Distress Skin: Normal Color, Warm, Dry, No Rash Head: Atraumatic, Normacephalic Eye(s): bilateral: Normal Inspection, PERRL, EOMI Nose: Normal Oral Mucosa: Moist Lips: Normal Appearing Neck: Normal ROM, Supple Chest: Symmetrical, No Tenderness Cardiovascular: Rhythm Regular, No Murmur Respiratory: Normal Breath Sounds, No Accessory Muscle Use Gastrointestinal/Abdominal: Soft, No Tenderness, No Guarding, No Rebound Back: Normal Inspection Extremity: Normal ROM, No Deformity, No Swelling Neurological/Psych: Oriented x3, Normal Speech ED Course And Treatment - Laboratory Results Result Diagrams: 10/13/17 10:52 10/13/17 10:52 O2 Sat by Pulse Oximetry: 100 (RA) Pulse Ox Interpretation: Normal Medical Decision Making Medical Decision Making: Plan: * Bloodwork * Toradol, Reglan, IVF, Lidocaine * XR Abdomen * UA/HCG * Reassess and Disposition On re-exam, the patient reports improvement of symptoms. Lungs are CTA, heart is RRR, abdomen is soft, non-tender and tolerating PO well. Ambulatory in the ED with steady gait. Follow up with the medical doctor/clinic within 1-2 days, Return if worsened. Disposition - Disposition Referrals: at [facility] [Outside] Disposition: HOME/ ROUTINE Disposition Time: 12:53 Condition: GOOD Additional Instructions: Follow up with the medical doctor/clinic within 1-2 days, Return if worsened. Prescriptions: Famotidine [Pepcid] 20 mg PO BID #20 tab Ibuprofen [Motrin] 1 tab PO TID PRN #30 tab PRN Reason: Pain Polyethylene Glycol 3350 [Miralax] 17 gm PO DAILY PRN #200 ml PRN Reason: Constipation Instructions: High Fiber Diet, Constipation, Adult (DC) Forms: [employer] (Pakistani), Work Excuse - Clinical Impression Clinical Impression: Abdominal discomfort, Constipation - Scribe Statement The provider has reviewed the documentation as recorded by the Scribe (Janes Melendez) All medical record entries made by the Scribe were at my direction and personally dictated by me. I have reviewed the chart and agree that the record accurately reflects my personal performance of the history, physical exam, medical decision making, and the department course for this patient. I have also personally directed, reviewed, and agree with the discharge instructions and disposition.
[2017-10-13 11:05] LABS: HCG,QUALITATIVE URINE NEGATIVE (NEGATIVE)
[2017-10-13 11:21] LABS: ALB/GLOB RATIO 1.3 (1.0-2.1); ALBUMIN 4.1 g/dL (3.5-5.0); ALT/SGPT 35 U/L (9-52); AST/SGOT 23 U/L (14-36); BLOOD UREA NITROGEN 12 mg/dL (7-17); CALCIUM 8.9 mg/dl (8.6-10.4); GFR AFRICAN-AMERICAN > 60; GFR NON-AFRICAN AMERICAN > 60; LIPASE 44 U/L (23-300)
[2017-10-13 12:31] VITALS: BP 96/62; PULSE 71
[2017-10-13] MEDS ORDERED: Peg-Electrolyte Oral Soln 4L (Golytely) PO ONE (12:52)
[2017-10-13 12:58] VITALS: O2SAT 100
--- NOTE | 2017-10-13 13:48 | RAD ---
PROCEDURE: Radiographs of the chest and abdomen (obstructive series) HISTORY: abd pain, constipation COMPARISON: No prior. TECHNIQUE: AP radiograph of the chest, with upright and supine radiographs of the abdomen. FINDINGS: CHEST: Lungs: Clear. Cardiovascular: Normal size heart. No pulmonary vascular congestion. Pleura: No pleural fluid. No pneumothorax. Other findings: None. ABDOMEN AND PELVIS: Bowel: Stool retention.. No evidence of mechanical obstruction. Free air: None. Bones: Bilateral sacroiliac sclerotic arthrosis Other findings: None. IMPRESSION: Unremarkable radiographs of chest. Moderate stool retention left colon more than right. No evidence of mechanical bowel obstruction.
== END 2017-10-13 13:21 | disposition home or self-care (01) ==
LOC: C.ER 09:34
DX: K59.00 Constipation, unspecified (principal); R10.9 Unspecified abdominal pain
CPT/HCPCS: 74022; 80053; 81001; 83690; 84703; 85025; 96374; 96375; 99285; J1885; J2001; J2765; J7030